=== PATIENT | male | born 1940 | race Caucasian/White ===

== ENCOUNTER 2017-09-12 17:58 | Emergency (ER) | payer MEDICARE ==
[2017-09-12 18:22] LABS: BASOPHILS % (AUTO) 0.5 %; EOSINOPHILS # (AUTO) 0.1 10^3/uL (0.0-0.7); EOSINOPHILS % (AUTO) 1.6 %; HGB - HEMOGLOBIN 14.7 g/dL (14.0-18.0); LYMPHOCYTES # (AUTO) 1.3 10^3/uL (1.5-3.5); LYMPHOCYTES % (AUTO) 15.1 %; MEAN CORPUSCULAR HEMOGLOBIN 33.2 pg (27.0-31.0); MEAN CORPUSCULAR HGB CONC 34.4 g/dL (32.0-36.0); MEAN CORPUSCULAR VOLUME 96.4 fL (80.0-94.0); MEAN PLATELET VOLUME 6.8 fL (7.4-11.4); MONOCYTES % (AUTO) 11.1 %; NEUTROPHILS # (AUTO) 6.2 10^3/uL (1.5-6.6); NEUTROPHILS % (AUTO) 71.7 %; PLT - PLATELET COUNT 161 10^3/uL (130-450); RED BLOOD COUNT 4.44 10^6/uL (4.70-6.10); RED CELL DISTRIBUTION WIDTH 14.1 % (12.0-15.0); WHITE BLOOD COUNT 8.6 x10^3/uL (4.8-10.8)
[2017-09-12 18:35] LABS: ALBUMIN 4.4 g/dL (3.2-5.5); ALBUMIN/GLOBULIN RATIO 1.3 (1.0-2.2); BILIRUBIN,TOTAL 0.7 mg/dL (0.2-1.0); CALCIUM 9.2 mg/dL (8.5-10.3); CREATININE 0.7 mg/dL (0.6-1.2); TOTAL PROTEIN 7.7 g/dL (6.7-8.2)
--- NOTE | 2017-09-12 18:58 | XRAY Report ---
EXAM: CHEST RADIOGRAPHY EXAM DATE: 09/12/2017 06:26 PM. CLINICAL HISTORY: Chest pain since yesterday. COMPARISON: None. TECHNIQUE: 2 views. FINDINGS: Lungs/Pleura: No focal opacities evident. No pleural effusion. No pneumothorax. Normal volumes. Mediastinum: Heart and mediastinal contours are unremarkable. Other: No compression fractures. IMPRESSION: Normal 2-view chest radiography. [facility] Referring Provider Line: [phone] SITE ID: [id number]
--- NOTE | 2017-09-12 19:03 | ED Physician Documentation ---
PD HPI CHEST PAIN - Stated complaint Stated Complaint: CHEST PX/BACK PX/SLURRED SPEECH - Chief complaint Chief Complaint: Cardiac - History obtained from History obtained from: Patient, Family - History of Present Illness Timing - onset: Last night Timing - duration: Days (1) Timing - details: Gradual onset Pain level max: 8 Pain level now: 0 Quality: Aching, Pain Location: Right chest Radiation: Right upper extremity Improved by: Nothing Worsened by: Other (nothing) Associated symptoms: No: Shortness of air, Diaphoresis, Nausea, Vomiting, Feeling faint / dizzy, General Weakness, Palpitations, Cough Recently seen: Not recently seen - Additional information Additional information: 77 year old male with R sided chest and shoulder pain last night that lasted until this am. Noted to have slurred speech this afternoon and brought in for eval. No cardiac history. Does have HTN. Review of Systems Ten Systems: 10 systems reviewed and negative Constitutional: denies: Fever, Chills Ears: denies: Ear pain Nose: denies: Rhinorrhea / runny nose, Congestion Cardiac: denies: Palpitations Respiratory: denies: Dyspnea, Cough, Wheezing GI: denies: Abdominal Pain, Nausea, Vomiting, Diarrhea Skin: denies: Rash Musculoskeletal: denies: Neck pain, Back pain Neurologic: denies: Headache PD PAST MEDICAL HISTORY - Past Medical History Cardiovascular: Hypertension : Benign prostate hypertrophy HEENT: Glaucoma - Past Surgical History Past Surgical History: Yes General: Appendectomy HEENT: Tonsil/Adenoidectomy - Present Medications Home Medications: Ambulatory Orders Medication Instructions Recorded Confirmed Alfuzosin HCl [Alfuzosin HCl ER] 10 mg PO DAILY 04/01/16 04/01/16 Finasteride [Proscar] 5 mg PO DAILY 04/01/16 04/01/16 Lisinopril [Zestril] 20 mg DAILY 04/01/16 04/01/16 Timolol 0.5% Ophth Drops [Timoptic 1 drops RIGHTEYE BID 04/01/16 04/01/16 0.5% Ophth Drops] hydroCHLOROthiazide 25 mg PO DAILY 04/01/16 04/01/16 [Hydrochlorothiazide] - Allergies Allergies/Adverse Reactions: Allergies Allergy/AdvReac Type Severity Reaction Status Date / Time acetaminophen [From Vicodin] AdvReac Hallucinati Verified 09/12/17 18:11 ons hydrocodone bitartrate * AdvReac Hallucinati Verified 09/12/17 18:10 [From Vicodin] ons oxycodone AdvReac Hallucinati Verified 09/12/17 18:10 ons - Social History Does the pt smoke?: No Smoking Status: Never smoker Does the pt drink ETOH?: Yes Does the pt have substance abuse?: No PD ED PE NORMAL - Vitals Vital signs reviewed: Yes - General General: Alert and oriented X 3, No acute distress, Well developed/nourished, Other (intoxicated) - HEENT HEENT: Moist mucous membranes - Neck Neck: Supple, no meningeal sign - Cardiac Cardiac: RRR, No murmur, Strong equal pulses - Respiratory Respiratory: No respiratory distress, Clear bilaterally - Abdomen Abdomen: Soft, Non tender, Non distended - Back Back: No CVA TTP, No spinal TTP - Derm Derm: Warm and dry, No rash - Extremities Extremities: No deformity, No tenderness to palpate, Normal ROM s pain, No edema , No calf tenderness / cord, Other (normal R shoulder exam) - Neuro Neuro: Alert and oriented X 3, cashier 2-12 intact, No motor deficit, No sensory deficit - Psych Psych: Normal mood, Normal affect Results - Vitals Vitals: Vital Signs - 24 hr 09/12/17 09/12/17 09/12/17 18:08 18:38 19:35 Temperature 37.1 C 36.8 C 37.3 C Heart Rate 77 76 79 Respiratory 18 20 22 Rate Blood Pressure 188/110 H 156/89 H 156/126 H O2 Saturation 100 98 97 Oxygen O2 Source Room air - EKG (time done) 1811 Rate: Rate (enter#) (75) Rhythm: NSR [place]ick[place]: Normal Intervals: Normal IN QRS: Normal Ischemia: Normal ST segments - Labs Labs: Laboratory Tests 09/12/17 09/12/17 09/12/17 18:17 18:17 18:17 WBC 8.6 RBC 4.44 L Hgb 14.7 Hct 42.8 MCV 96.4 H MCH 33.2 H MCHC 34.4 RDW 14.1 Plt Count 161 MPV 6.8 L Neut # 6.2 Lymph # 1.3 L [place] # 1.0 Eos # 0.1 Baso # 0.0 Absolute Nucleated RBC 0.00 Nucleated RBC % 0.0 Sodium 143 Potassium 3.5 Chloride 107 Carbon Dioxide 24 Anion Gap 12.0 BUN 21 H Creatinine 0.7 Estimated GFR (MDRD) 110 Glucose 111 H Calcium 9.2 Total Bilirubin 0.7 AST 66 H ALT 85 H Alkaline Phosphatase 41 L Troponin I < 0.04 Total Protein 7.7 Albumin 4.4 Globulin 3.3 Albumin/Globulin Ratio 1.3 Lipase 50 Ethyl Alcohol 09/12/17 18:17 WBC RBC Hgb Hct MCV MCH MCHC RDW Plt Count MPV Neut # Lymph # [place] # Eos # Baso # Absolute Nucleated RBC Nucleated RBC % Sodium Potassium Chloride Carbon Dioxide Anion Gap BUN Creatinine Estimated GFR (MDRD) Glucose Calcium Total Bilirubin AST ALT Alkaline Phosphatase Troponin I Total Protein Albumin Globulin Albumin/Globulin Ratio Lipase Ethyl Alcohol 256.9 - Rads (name of study) cxr Radiology: Prelim report reviewed, EMP read contemporaneously, See rad report ( Normal 2-view chest radiography. ) PD MEDICAL DECISION MAKING - ED course Complexity details: reviewed results, re-evaluated patient, considered differential (No ST elevation AL, no aortic dissection, no PE, no tension pneumothorax, no aortic aneurysm), d/w patient, d/w family ED course: Patient is a 77-year-old gentleman who presents to the emergency department with right shoulder and right upper chest wall pain last night. This is since resolved. Normal examination here. The pain was consistent throughout the night. This was greater than 8 hours ago, negative troponin. Normal EKG. Normal chest x-ray. He is heavily intoxicated and states he "does not drink that much". He also states he only had one drink today. I discussed at length the need for him to quit drinking as this may be contributing to his frequent falls. He also states that he feels unsteady on ladders and I recommended that he does not climb ladders while he is intoxicated. Patient counseled regarding signs and symptoms for which I believe and urgent re-evaluation would be necessary. Patient with good understanding of and agreement to plan and is comfortable going home at this time This document was made in part using voice recognition software. While efforts are made to proofread this document, sound alike and grammatical errors may occur. Departure - Departure Disposition: 01 Home, Self Care Clinical Impression: Shoulder pain Qualifiers: Chronicity: acute Laterality: right Qualified Code(s): M25.511 - Pain in right shoulder Alcohol intoxication Qualifiers: Complication of substance-induced condition: uncomplicated Qualified Code(s): F10.920 - Alcohol use, unspecified with intoxication, uncomplicated Condition: Good Instructions: ED Chest Pain Atypical Unkn Cause, ED Alcohol Intoxication Follow-Up: your,doctor in 3 days for recheck [Other] Comments: You alcohol level was over 3 times the legal limit today. Do not drive. Your son in law will drive you home. Follow up with your doctor to discuss ways to help you stop drinking. Discharge Date/Time: 09/12/17 19:41
[2017-09-12 19:36] VITALS: BP 156/126
== END 2017-09-12 19:41 | disposition home or self-care (01) ==
LOC: ED 17:58
DX: M25.511 Pain in right shoulder (principal); F10.920 Alcohol use, unspecified with intoxication, uncomplicated; I45.81 Long QT syndrome; I10 Essential (primary) hypertension
CPT/HCPCS: 36415; 71046; 80053; 83690; 84484; 85025; 93005; 99283; 99285; G0480; 80320

== ENCOUNTER 2018-05-19 09:55 | Emergency (ER) | payer MEDICARE ==
[2018-05-19] MEDS ORDERED: SODIUM CHLORIDE 0.9% 1,000 ML IV ONE (10:21)
[2018-05-19] MEDS ORDERED: LORazepam 2 MG/ML VIAL IVP STA (10:21)
[2018-05-19] MEDS ORDERED: THIAMINE INJ 100 MG in SODIUM CHLORIDE 0.9% 50 ML IV STA (10:21)
--- NOTE | 2018-05-19 10:23 | ED Physician Documentation ---
History of Present Illness - Stated complaint Stated Complaint: HALLUCINATION - Chief complaint Chief Complaint: General - History obtained from History obtained from: Patient - History of Present Illness Timing: Other (This is a 77-year-old gentleman who has a chief complaint of mostly visual hallucinations. He has been intermittently taking gabapentin for the last couple of months and he feels like this may be causing it but he also quit drinking alcohol about 5 days ago. He says especially at night he is seeing people on his property cutting down things and he has been chasing people around. He does feel shaky. No vomiting. He is hit his head several times because of disequilibrium including a fall downstairs a few weeks ago.) Review of Systems Ten Systems: 10 systems reviewed and negative Constitutional: denies: Fever, Chills Nose: denies: Rhinorrhea / runny nose, Congestion Cardiac: denies: Chest pain / pressure, Palpitations Respiratory: denies: Dyspnea, Cough PD PAST MEDICAL HISTORY - Past Medical History Past Medical History: Yes Cardiovascular: Hypertension : Benign prostate hypertrophy HEENT: Glaucoma - Past Surgical History Past Surgical History: Yes General: Appendectomy HEENT: Tonsil/Adenoidectomy - Present Medications Home Medications: Ambulatory Orders Medication Instructions Recorded Confirmed Alfuzosin HCl [Alfuzosin HCl ER] 10 mg PO DAILY 04/01/16 04/01/16 Finasteride [Proscar] 5 mg PO DAILY 04/01/16 04/01/16 Lisinopril [Zestril] 20 mg DAILY 04/01/16 04/01/16 Timolol 0.5% Ophth Drops [Timoptic 1 drops RIGHTEYE BID 04/01/16 04/01/16 0.5% Ophth Drops] hydroCHLOROthiazide 25 mg PO DAILY 04/01/16 04/01/16 [Hydrochlorothiazide] Lorazepam [Ativan] 1 mg PO TID PRN #15 tablet 05/19/18 - Allergies Allergies/Adverse Reactions: Allergies Allergy/AdvReac Type Severity Reaction Status Date / Time acetaminophen [From Vicodin] AdvReac Hallucinati Verified 05/19/18 10:06 ons hydrocodone bitartrate * AdvReac Hallucinati Verified 05/19/18 10:06 [From Vicodin] ons oxycodone AdvReac Hallucinati Verified 05/19/18 10:06 ons - Social History Does the pt smoke?: No Smoking Status: Never smoker Does the pt drink ETOH?: Yes Does the pt have substance abuse?: No - POLST Patient has POLST: Yes PD ED PE NORMAL - Vitals Vital signs reviewed: Yes - General General: Alert and oriented X 3, Other (Tremulous) - HEENT HEENT: PERRL, EOMI - Neck Neck: Supple, no meningeal sign, No bony TTP - Cardiac Cardiac: RRR, No murmur - Respiratory Respiratory: No respiratory distress, Clear bilaterally - Abdomen Abdomen: Normal bowel sounds, Soft, Non tender - Back Back: No CVA TTP, No spinal TTP - Derm Derm: Normal color, Warm and dry - Extremities Extremities: No edema, No calf tenderness / cord - Neuro Neuro: Alert and oriented X 3, Normal speech Eye Opening: Spontaneous Motor: Obeys Commands Verbal: Oriented GCS Score: 15 - Psych Psych: Normal mood, Normal affect Results - Vitals Vitals: Vital Signs - 24 hr 05/19/18 05/19/18 10:01 12:27 Temperature 36.4 C L 37.6 C H Heart Rate 90 84 Respiratory 20 18 Rate Blood Pressure 163/108 H 147/108 H O2 Saturation 100 98 Oxygen O2 Source Room air - Labs Labs: Laboratory Tests 05/19/18 05/19/18 10:31 10:31 WBC 10.5 RBC 4.94 Hgb 16.8 Hct 47.3 MCV 95.8 H MCH 33.9 H MCHC 35.4 RDW 14.0 Plt Count 127 L MPV 8.2 Neut # (Auto) 7.9 H Lymph # (Auto) 1.1 L [place] # (Auto) 1.4 H Eos # (Auto) 0.1 Baso # (Auto) 0.0 Absolute Nucleated RBC 0.01 Nucleated RBC % 0.1 Sodium 134 L Potassium 3.9 Chloride 96 L Carbon Dioxide 23 Anion Gap 15.0 H BUN 39 H Creatinine 1.3 H Estimated GFR (MDRD) 54 L Glucose 107 H Calcium 9.4 Total Bilirubin 1.9 H AST 71 H ALT 71 H Alkaline Phosphatase 52 Total Protein 8.0 Albumin 4.9 Globulin 3.1 Albumin/Globulin Ratio 1.6 Lipase 47 Ethyl Alcohol < 5.0 - Rads (name of study) Head CT Radiology: EMP read contemporaneously (NAD) PD MEDICAL DECISION MAKING - ED course ED course: 87-year-old gentleman with hallucinations associated with alcohol withdrawal. He appeared less shaky after single dose of Ativan and he was not hallucinating here. Social work saw him. He declined inpatient detox. Departure - Departure Disposition: 01 Home, Self Care Clinical Impression: Alcohol withdrawal Qualifiers: Complication of substance-induced condition: with perceptual disturbance Qualified Code(s): F10.232 - Alcohol dependence with withdrawal with perceptual disturbance Condition: Good Record reviewed to determine appropriate education?: Yes Instructions: ED Withdrawal Alcohol Prescriptions: Lorazepam [Ativan] 1 mg PO TID PRN #15 tablet PRN Reason: Anxiety Comments: Call your doctor to arrange a follow-up appointment, make the next available appointment. In the interim, return anytime if worse or if new symptoms develop. Your blood pressure was elevated today on check into the emergency department. This does not mean that you have hypertension, it is a common phenomenon to come to the emergency department and have elevated blood pressure. I recommend that you see your primary care physician within the week to have it rechecked when you are feeling better.
[2018-05-19 10:46] LABS: BASOPHILS % (AUTO) 0.4 %; EOSINOPHILS # (AUTO) 0.1 10^3/uL (0.0-0.7); EOSINOPHILS % (AUTO) 0.6 %; HGB - HEMOGLOBIN 16.8 g/dL (14.0-18.0); LYMPHOCYTES # (AUTO) 1.1 10^3/uL (1.5-3.5); LYMPHOCYTES % (AUTO) 10.1 %; MEAN CORPUSCULAR HEMOGLOBIN 33.9 pg (27.0-31.0); MEAN CORPUSCULAR HGB CONC 35.4 g/dL (32.0-36.0); MEAN CORPUSCULAR VOLUME 95.8 fL (80.0-94.0); MEAN PLATELET VOLUME 8.2 fL (7.4-11.4); MONOCYTES # (AUTO) 1.4 10^3/uL (0.0-1.0); MONOCYTES % (AUTO) 13.4 %; NEUTROPHILS # (AUTO) 7.9 10^3/uL (1.5-6.6); NEUTROPHILS % (AUTO) 75.5 %; PLT - PLATELET COUNT 127 10^3/uL (130-450); RED BLOOD COUNT 4.94 10^6/uL (4.70-6.10); WHITE BLOOD COUNT 10.5 x10^3/uL (4.8-10.8)
[2018-05-19 11:00] LABS: ALBUMIN 4.9 g/dL (3.2-5.5); ALBUMIN/GLOBULIN RATIO 1.6 (1.0-2.2); ALKALINE PHOSPHATASE 52 IU/L (42-121); ALT ALANINE AMINOTRANSFERASE 71 IU/L (10-60); AST ASPARTATE AMINOTRANSFERASE 71 IU/L (10-42); BILIRUBIN,TOTAL 1.9 mg/dL (0.2-1.0); BUN - BLOOD UREA NITROGEN 39 mg/dL (6-20); CALCIUM 9.4 mg/dL (8.5-10.3); CARBON DIOXIDE - CO2 23 mmol/L (21-32); CHLORIDE 96 mmol/L (101-111); CREATININE 1.3 mg/dL (0.6-1.2); GFR - MDRD 54 (>89); GLUCOSE 107 mg/dL (70-100); LIPASE 47 U/L (22-51); SODIUM 134 mmol/L (135-145)
--- NOTE | 2018-05-19 11:15 | CT Report ---
Reason: head inj Procedure Date: 05/19/2018 Accession Number: [id number] / [id number] Procedure: CT - Head W/O CPT Code: FULL RESULT: EXAM: CT HEAD EXAM DATE: 05/19/2018 11:03 AM. CLINICAL HISTORY: Head injury. COMPARISON: None. TECHNIQUE: Multiaxial CT images were obtained from the foramen magnum to the vertex. Reformats: Sagittal and coronal. IV contrast: None. In accordance with CT protocol optimization, one or more of the following dose reduction techniques were utilized for this exam: automated exposure control, adjustment of mA and/or KV based on patient size, or use of iterative reconstructive technique. FINDINGS: Parenchyma: No intraparenchymal hemorrhage. No evidence of mass, midline shift. Rodríguez-white differentiation is distinct. Extraaxial Spaces: Normal for age. No subdural or epidural collections identified. Ventricles: Normal in size and position. Sinuses and Orbits: Imaged paranasal sinuses, orbits, and mastoids show no significant abnormality. Bones: No evidence of fracture or calvarial defect. Other: There is an extracranial superficial left posterior scalp hematoma. IMPRESSION: No acute intracranial abnormality. [facility]
[2018-05-19 12:28] VITALS: BP 147/108
== END 2018-05-19 13:49 | disposition home or self-care (01) ==
LOC: ED 09:55
DX: F10.232 Alcohol dependence with withdrawal with perceptual disturbance (principal); I10 Essential (primary) hypertension
CPT/HCPCS: 36415; 70450; 80053; 83690; 85025; 96361; 96365; 96375; 99283; J2060; 80320

== ENCOUNTER 2018-10-09 05:26 | Outpatient (CLI) | payer MEDICARE | END 2018-10-09 05:27 | disposition critical access hospital (66) | LOC: EMS 05:26 | PROVIDERS: ATTEND Surgery | DX: R44.1 Visual hallucinations (principal); R42 Dizziness and giddiness; R45.1 Restlessness and agitation ==

== ENCOUNTER 2018-10-09 05:59 | Emergency (ER) | payer MEDICARE ==
[2018-10-09] MEDS ORDERED: LORazepam 2 MG/ML VIAL IVP STA ×2 (06:11→08:33)
[2018-10-09] MEDS ORDERED: FOLIC ACID INJ 1 MG, THIAMINE INJ 100 MG, MAGNESIUM SULFATE 2 GM, MULTIVITAMIN 10 ML in... IV STA ×5 (06:12)
[2018-10-09] MEDS ORDERED: THIAMINE 100 MG/1 ML 2 ML MDV ONE (06:25)
[2018-10-09] MEDS ORDERED: MULTIVITAMIN 10 ML, THIAMINE INJ 100 MG, FOLIC ACID INJ 1 MG in SODIUM CHLORIDE 0.9% 1,... IV STA (06:31)
[2018-10-09] MEDS ORDERED: MAGNESIUM SULFATE 1 GM/2 ML VIAL ONE (06:37)
[2018-10-09 06:46] LABS: BASOPHILS % (AUTO) 0.3 %; EOSINOPHILS % (AUTO) 0.4 %; HGB - HEMOGLOBIN 14.8 g/dL (14.0-18.0); LYMPHOCYTES # (AUTO) 0.5 10^3/uL (1.5-3.5); LYMPHOCYTES % (AUTO) 6.5 %; MEAN CORPUSCULAR HEMOGLOBIN 33.8 pg (27.0-31.0); MEAN CORPUSCULAR HGB CONC 35.8 g/dL (32.0-36.0); MEAN CORPUSCULAR VOLUME 94.2 fL (80.0-94.0); MEAN PLATELET VOLUME 7.7 fL (7.4-11.4); MONOCYTES # (AUTO) 1.1 10^3/uL (0.0-1.0); MONOCYTES % (AUTO) 13.3 %; NEUTROPHILS # (AUTO) 6.5 10^3/uL (1.5-6.6); NEUTROPHILS % (AUTO) 79.5 %; PLT - PLATELET COUNT 107 10^3/uL (130-450); WHITE BLOOD COUNT 8.2 x10^3/uL (4.8-10.8)
[2018-10-09 06:53] LABS: ALBUMIN 4.2 g/dL (3.2-5.5); ALBUMIN/GLOBULIN RATIO 1.4 (1.0-2.2); ALKALINE PHOSPHATASE 60 IU/L (42-121); ALT ALANINE AMINOTRANSFERASE 50 IU/L (10-60); AST ASPARTATE AMINOTRANSFERASE 41 IU/L (10-42); BILIRUBIN,TOTAL 1.6 mg/dL (0.2-1.0); BUN - BLOOD UREA NITROGEN 19 mg/dL (6-20); CALCIUM 8.4 mg/dL (8.5-10.3); CARBON DIOXIDE - CO2 19 mmol/L (21-32); CHLORIDE 95 mmol/L (101-111); CREATININE 1.1 mg/dL (0.6-1.2); GFR - MDRD 65 (>89); GLUCOSE 162 mg/dL (70-100); LIPASE 42 U/L (22-51); MAGNESIUM 1.3 mg/dL (1.7-2.8); PHOSPHORUS 2.3 mg/dL (2.5-4.6); SODIUM 130 mmol/L (135-145); TOTAL PROTEIN 7.3 g/dL (6.7-8.2)
[2018-10-09 07:12] LABS: INR 1.1 (0.8-1.2); PT - PROTHROMBIN TIME 12.7 secs (9.9-12.6)
[2018-10-09 07:19] LABS: PARTIAL THROMBOPLASTIN TIME 27.6 secs (24.9-33.3)
[2018-10-09] MEDS ORDERED: POTASSIUM CHLORIDE 20 MEQ TABLET PO STA (08:08)
--- NOTE | 2018-10-09 08:23 | ED Physician Documentation ---
PD HPI ALTERED MENTAL STATUS - Stated complaint Stated Complaint: ALOC, TREMORS - Chief complaint Chief Complaint: Neuro - History obtained from History obtained from: Patient, Family, EMS - History of Present Illness Timing - onset: Yesterday Timing - duration: Days (2) Timing - details: Gradual onset, Still present Quality / character: Less responsive, Confused, Agitated, Hallucinating Associated symptoms: General weakness. No: Fever, Headache, Stiff neck, Dyspnea, Cough, NVD, Urinary sx, Focal weakness, Seizure activity Contributing factors: Other (alcohol withdrawal) Basline status: Alert and oriented X 3, Ambulatory, Independent Similar symptoms before: Diagnosis (alcohol withdrawal) Recently seen: Not recently seen - Additional information Additional information: 78-year-old alcoholic male has stopped drinking about 1 week ago and this morning he was having issues with hallucinations feeling that there were children running around outside of his house. He was quite shaky when medics went to pick him up and he is weak as well. He states he has had similar symptoms previously with alcohol withdrawal which are usually delayed. He reports a prior 10-year history of sobriety and states that he drinks about 1/5/day. He has stopped drinking after getting a letter from his granddaughter. He has had ativan prior to my talking to the patient and he feels much improved still a little shaky. He indicates he has had this happen to him previously with withdrawal . Review of Systems Constitutional: denies: Fever Eyes: denies: Decreased vision Ears: denies: Ear pain Nose: denies: Rhinorrhea / runny nose, Congestion Throat: denies: Sore throat Cardiac: denies: Chest pain / pressure, Palpitations Respiratory: denies: Dyspnea, Cough GI: reports: Nausea, Diarrhea. denies: Abdominal Pain, Vomiting : denies: Dysuria, Frequency Skin: denies: Rash Musculoskeletal: denies: Neck pain, Back pain, Extremity pain Neurologic: reports: Generalized weakness, Confused, Altered mental status. denies: Focal weakness, Numbness Psychiatric: reports: Hallucinations. denies: Depressed, Suicidal, Homicidal PD PAST MEDICAL HISTORY - Past Medical History Past Medical History: Yes Cardiovascular: Hypertension : Benign prostate hypertrophy HEENT: Glaucoma - Past Surgical History Past Surgical History: Yes General: Appendectomy HEENT: Tonsil/Adenoidectomy - Present Medications Home Medications: Ambulatory Orders Medication Instructions Recorded Confirmed Alfuzosin HCl [Alfuzosin HCl ER] 10 mg PO DAILY 04/01/16 04/01/16 Finasteride [Proscar] 5 mg PO DAILY 04/01/16 04/01/16 Lisinopril [Zestril] 20 mg DAILY 04/01/16 04/01/16 Timolol 0.5% Ophth Drops [Timoptic 1 drops RIGHTEYE BID 04/01/16 04/01/16 0.5% Ophth Drops] hydroCHLOROthiazide 25 mg PO DAILY 04/01/16 04/01/16 [Hydrochlorothiazide] Lorazepam [Ativan] 1 mg PO TID PRN #15 tablet 05/19/18 Lorazepam [Ativan] 1 - 2 mg PO Q6HR PRN #30 tablet 10/09/18 - Allergies Allergies/Adverse Reactions: Allergies Allergy/AdvReac Type Severity Reaction Status Date / Time acetaminophen [From Vicodin] AdvReac Hallucinati Verified 10/09/18 06:06 ons hydrocodone bitartrate * AdvReac Hallucinati Verified 10/09/18 06:06 [From Vicodin] ons oxycodone AdvReac Hallucinati Verified 10/09/18 06:06 ons - Social History Does the pt smoke?: No Smoking Status: Never smoker Does the pt drink ETOH?: Yes Does the pt have substance abuse?: No - POLST Patient has POLST: Yes PD ED PE NORMAL - Vitals Vital signs reviewed: Yes (hypertensive ) - General General: Alert and oriented X 3, No acute distress, Well developed/nourished, Other (shaking but without evidence of acute hallucination now. ) - HEENT HEENT: Atraumatic, PERRL, EOMI, Ears normal, Pharynx benign, Dentition benign, Other (dry mucous membranes ) - Neck Neck: Supple, no meningeal sign, No bony TTP - Cardiac Cardiac: RRR, No murmur - Respiratory Respiratory: No respiratory distress, Clear bilaterally - Abdomen Abdomen: Soft, Non tender - Back Back: No CVA TTP, No spinal TTP - Derm Derm: Normal color, Warm and dry, No rash - Extremities Extremities: No deformity, No edema - Neuro Neuro: Alert and oriented X 3, station usher 2-12 intact, No motor deficit, No sensory deficit, Normal speech Eye Opening: Spontaneous Motor: Obeys Commands Verbal: Oriented GCS Score: 15 - Psych Psych: Normal mood, Normal affect Results - Vitals Vitals: Vital Signs - 24 hr 10/09/18 10/09/18 06:00 07:00 Temperature 36.8 C Heart Rate 91 79 Respiratory 18 20 Rate Blood Pressure 121/93 H 149/110 H O2 Saturation 100 96 Oxygen O2 Source Room air - Labs Labs: Laboratory Tests 10/09/18 10/09/18 10/09/18 06:10 06:10 06:10 WBC 8.2 RBC 4.40 L Hgb 14.8 Hct 41.4 L MCV 94.2 H MCH 33.8 H MCHC 35.8 RDW 14.0 Plt Count 107 L MPV 7.7 Neut # (Auto) 6.5 Lymph # (Auto) 0.5 L [place] # (Auto) 1.1 H Eos # (Auto) 0.0 Baso # (Auto) 0.0 Absolute Nucleated RBC 0.01 Nucleated RBC % 0.1 PT 12.7 H INR 1.1 APTT 27.6 Sodium 130 L Potassium 3.3 L Chloride 95 L Carbon Dioxide 19 L Anion Gap 16.0 H BUN 19 Creatinine 1.1 Estimated GFR (MDRD) 65 L Glucose 162 H Calcium 8.4 L Phosphorus 2.3 L Magnesium 1.3 L Total Bilirubin 1.6 H AST 41 ALT 50 Alkaline Phosphatase 60 Total Protein 7.3 Albumin 4.2 Globulin 3.1 Albumin/Globulin Ratio 1.4 Lipase 42 Ethyl Alcohol < 5.0 PD MEDICAL DECISION MAKING - ED course Complexity details: considered differential, d/w patient ED course: 78-year-old male with delayed effects of alcohol withdrawal he has improvement with use of Ativan he is administered a banana bag with thiamine and magnesium as well as potassium chloride. He is administered further Ativan and we will discharge him with a prescription for Ativan. Departure - Departure Disposition: 01 Home, Self Care Clinical Impression: Alcohol withdrawal Qualifiers: Complication of substance-induced condition: with delirium Qualified Code(s): F10.231 - Alcohol dependence with withdrawal delirium Condition: Stable Instructions: ED Withdrawal Alcohol Follow-Up: Mark Carrera MD [Physician No Access] - Prescriptions: Lorazepam [Ativan] 1 - 2 mg PO Q6HR PRN #30 tablet PRN Reason: withdrawal symptoms
[2018-10-09 09:11] VITALS: BP 90/75
== END 2018-10-09 09:25 | disposition home or self-care (01) ==
LOC: EDUNIT# → ED 05:59
DX: F10.231 Alcohol dependence with withdrawal delirium (principal); I10 Essential (primary) hypertension
CPT/HCPCS: 36415; 80053; 80320; 83690; 83735; 84100; 85025; 85610; 85730; 99283

== ENCOUNTER 2018-10-09 15:45 | Emergency (ER) | payer MEDICARE ==
--- NOTE | 2018-10-09 16:41 | ED Physician Documentation ---
History of Present Illness - Stated complaint Stated Complaint: respiratory - Chief complaint Chief Complaint: General - History obtained from History obtained from: Patient, Family - History of Present Illness Timing: Today Pain level max: 0 Pain level now: 0 - Additonal information Additional information: 78-year-old male with a long history of alcoholism. He presents to the emergency department this morning after a week of alcohol withdrawal. He was given Ativan for home. Family states that at home while he was sleeping he would stop breathing for a few seconds at a time and brought him for evaluation. Patient does have a history of GLORIA but does not use a CPAP. Review of Systems Ten Systems: 10 systems reviewed and negative Constitutional: denies: Fever, Chills Ears: denies: Ear pain Nose: denies: Rhinorrhea / runny nose, Congestion Respiratory: denies: Dyspnea, Cough GI: denies: Nausea, Vomiting, Diarrhea Skin: denies: Rash Musculoskeletal: denies: Neck pain, Back pain Neurologic: denies: Focal weakness, Numbness Psychiatric: reports: Hallucinations (Has had visual hallucinations.). denies: Depressed, Suicidal, Homicidal PD PAST MEDICAL HISTORY - Past Medical History Past Medical History: Yes Cardiovascular: Hypertension : Benign prostate hypertrophy HEENT: Glaucoma - Past Surgical History Past Surgical History: Yes General: Appendectomy HEENT: Tonsil/Adenoidectomy - Present Medications Home Medications: Ambulatory Orders Medication Instructions Recorded Confirmed Alfuzosin HCl [Alfuzosin HCl ER] 10 mg PO DAILY 04/01/16 04/01/16 Finasteride [Proscar] 5 mg PO DAILY 04/01/16 04/01/16 Lisinopril [Zestril] 20 mg DAILY 04/01/16 04/01/16 Timolol 0.5% Ophth Drops [Timoptic 1 drops RIGHTEYE BID 04/01/16 04/01/16 0.5% Ophth Drops] hydroCHLOROthiazide 25 mg PO DAILY 04/01/16 04/01/16 [Hydrochlorothiazide] Lorazepam [Ativan] 1 mg PO TID PRN #15 tablet 05/19/18 Gabapentin 600 mg PO TID #90 tablet 10/09/18 Lorazepam [Ativan] 1 - 2 mg PO Q6HR PRN #30 tablet 10/09/18 Thiamine [Vitamin B-1] 100 mg PO DAILY #30 tablet 10/09/18 - Allergies Allergies/Adverse Reactions: Allergies Allergy/AdvReac Type Severity Reaction Status Date / Time acetaminophen [From Vicodin] AdvReac Hallucinati Verified 10/09/18 15:52 ons hydrocodone bitartrate * AdvReac Hallucinati Verified 10/09/18 15:52 [From Vicodin] ons oxycodone AdvReac Hallucinati Verified 10/09/18 15:52 ons - Social History Does the pt smoke?: No Smoking Status: Never smoker Does the pt drink ETOH?: Yes Does the pt have substance abuse?: No - Immunizations Immunizations are current?: Yes - POLST Patient has POLST: Yes PD ED PE NORMAL - Vitals Vital signs reviewed: Yes - General General: Alert and oriented X 3, No acute distress - HEENT HEENT: PERRL - Neck Neck: Supple, no meningeal sign - Cardiac Cardiac: RRR, No murmur - Respiratory Respiratory: Clear bilaterally - Abdomen Abdomen: Normal bowel sounds, Soft, Non tender, Non distended - Derm Derm: Warm and dry - Extremities Extremities: No deformity - Neuro Neuro: Alert and oriented X 3 - Psych Psych: Normal mood, Normal affect Results - Vitals Vitals: Vital Signs - 24 hr 10/09/18 10/09/18 15:48 17:20 Temperature 36.7 C Heart Rate 92 80 Respiratory 18 16 Rate Blood Pressure 138/39 H 132/77 H O2 Saturation 97 98 Oxygen O2 Source Room air PD MEDICAL DECISION MAKING - ED course Complexity details: reviewed results, re-evaluated patient, considered differential, d/w patient, d/w family ED course: Symptoms that the family are concerned about appear consistent with obstructive sleep apnea. He should have a sleep test performed. We will also place him on gabapentin as well as thiamine for home. We will have him follow-up with his doctor for further evaluation and care. Patient counseled regarding signs and symptoms for which I believe and urgent re-evaluation would be necessary. Patient with good understanding of and agreement to plan and is comfortable going home at this time This document was made in part using voice recognition software. While efforts are made to proofread this document, sound alike and grammatical errors may occur. Resources given for long-term alcohol rehab as well as crisis detox facilities for short-term. Departure - Departure Disposition: 01 Home, Self Care Clinical Impression: Hallucinations due to alcohol Condition: Good Instructions: ED Withdrawal Alcohol, ED Psychosis Follow-Up: Gerson Sanon MD [Primary Care Provider] - Within 3 Days Prescriptions: Gabapentin 600 mg PO TID #90 tablet Thiamine [Vitamin B-1] 100 mg PO DAILY #30 tablet Comments: Return if you worsen. Follow-up on Thursday with your doctor for further evaluation and care. Maximo would benefit from long-term rehab. The gabapentin will help decrease cravings for alcohol. The thiamine may help his hallucinations over time. He would also benefit from a sleep study, but this is less important. He would likely benefit from a CPAP machine at home to use at night. His doctor can refer him for the sleep study. Discharge Date/Time: 10/09/18 17:21
[2018-10-09] MEDS ORDERED: GABAPENTIN 100 MG CAPSULE PO STA (16:43)
[2018-10-09 17:21] VITALS: BP 132/77
== END 2018-10-09 17:21 | disposition home or self-care (01) ==
LOC: ED 15:45
DX: F10.251 Alcohol dependence with alcohol-induced psychotic disorder with hallucinations (principal); F10.231 Alcohol dependence with withdrawal delirium; G47.33 Obstructive sleep apnea (adult) (pediatric); I10 Essential (primary) hypertension
CPT/HCPCS: 36415; 80053; 83690; 83735; 84100; 85025; 85610; 85730; 96365; 96366; 96375; 96376; 99283; 99284; A9270; J2060; J3411; 80320

== ENCOUNTER 2018-10-10 13:17 | Outpatient (CLI) | payer MEDICARE | END 2018-10-10 13:18 | disposition short-term general hospital (02) | LOC: EMS 13:17 | PROVIDERS: ATTEND Surgery | DX: R44.3 Hallucinations, unspecified (principal); R29.6 Repeated falls; R42 Dizziness and giddiness; Z91.81 History of falling; Z72.89 Other problems related to lifestyle ==

== ENCOUNTER 2023-09-15 06:31 | Day surgery (SDC) | payer MEDICARE ==
[2023-09-15] MEDS ORDERED: ceFAZolin 2 GM VIAL ONE (06:36)
[2023-09-15] MEDS: LACTATED RINGERS 1,000 ML IV ONE ×2 (06:38→09:10)
--- NOTE | 2023-09-15 06:46 | ANESTHESIA ---
Pre-Anesthesia VS, & Labs - Diagnosis umbilical hernia - Procedure umbilical hernia repair with mesh Height: 5 ft 7 in - NPO >8 hours - Lab Results Lab results reviewed: Yes Home Medications and Allergies Home Medications: Ambulatory Orders Brimonidine 0.2% Ophth Drops [Alphagan P 0.2% Ophth Drops] 1 drops OPTH TID 09/14/23 Losartan [Cozaar] 50 mg PO DAILY 09/14/23 Tamsulosin [Flomax] 0.4 mg PO DAILY 09/14/23 Finasteride [Proscar] 5 mg PO DAILY 04/01/16 Timolol 0.5% Ophth Drops [Timoptic 0.5% Ophth Drops] 1 drops RIGHTEYE BID 04/01/16 Brimonidine 0.2% Ophth Drops [Alphagan P 0.2% Ophth Drops] 1 drops OPTH TID 09/14/23 Losartan [Cozaar] 50 mg PO DAILY 09/14/23 Tamsulosin [Flomax] 0.4 mg PO DAILY 09/14/23 Allergies/Adverse Reactions: Allergies Allergy/AdvReac Type Severity Reaction Status Date / Time acetaminophen [From Vicodin] AdvReac Hallucinati Verified 09/15/23 07:18 ons hydrocodone bitartrate * AdvReac Hallucinati Verified 09/15/23 07:18 [From Vicodin] ons oxycodone AdvReac Hallucinati Verified 09/15/23 07:18 ons Anes History & Medical History - Anesthetic History Anesthesia Complications: reports: No previous complications Family history of Anesthesia Complications: Denies Family history of Malignant Hyperthermia: Denies - Medical History Cardiovascular: reports: Hypertension Urinary: reports: Benign prostate hypertrophy Smoking Status: Never smoker - Surgical History General: reports: Appendectomy Eyes Ears Nose Throat (EENT): reports: Tonsil/Adenoidectomy Exam General: Alert, Oriented x3, Cooperative, No acute distress Dental: Dentures full Upper, Dentures full Lower Mouth Openin Fingerbreadth Neck Mobility: Normal Mallampati classification: II Thyromental Distance: less than 4 cm Respiratory: Lungs clear, Normal breath sounds Cardiovascular: Other (SB 1 degree AV block, new EKG this AM, discussed with ER MD x2 and Internal medicine MD. minimal concerns with pt being asymptomatic. Will proceed with surgery as planned) Mental/Cognitive Status: Alert/Oriented X3, Normal for patient Cognitive Status: Within normal limits Plan Anesthesia Type: General Consent for Procedure(s) Verified and Reviewed: Yes Code Status: Attempt Resuscitation ASA classification: 2-Mild systemic disease Is this case an emergency?: No
[2023-09-15] MEDS ORDERED: ONDANSETRON 4 MG/2 ML VIAL IVP PRN ×2 (06:51→09:41)
[2023-09-15] MEDS ORDERED: METOCLOPRAMIDE 10 MG/2 ML VIAL IVP PRN (06:51)
[2023-09-15] MEDS ORDERED: NALOXONE 0.4 MG/ML VIAL IVP PRN (06:51)
[2023-09-15] MEDS ORDERED: ATROPINE ABBOJECT 1 MG/10 ML SYRINGE IVP PRN (06:51)
[2023-09-15] MEDS ORDERED: ePHEDrine 50 MG/ML VIAL IVP PRN (06:51)
[2023-09-15] MEDS ORDERED: BUPIVACAINE 0.5%-EPI 1:200000 PF 30 ML VIAL ONE (06:52)
[2023-09-15] MEDS ORDERED: LIDOCAINE-PF 2% 10 ML AMP SUBQ ONE (07:00)
[2023-09-15] MEDS ORDERED: LACTATED RINGERS 1,000 ML IV SCH (07:00)
[2023-09-15] MEDS ORDERED: PROPOFOL 200 MG/20 ML VIAL IVP ONE (07:00)
[2023-09-15] MEDS ORDERED: fentaNYL 100 MCG/2 ML VIAL ONE ×3 (07:01→09:34)
[2023-09-15] MEDS ORDERED: MIDAZOLAM 2 MG/2 ML VIAL ONE (07:01)
[2023-09-15] MEDS ORDERED: GLYCOPYRROLATE 1 MG/5 ML VIAL ONE (07:36)
[2023-09-15] MEDS ORDERED: SODIUM CHLORIDE 0.9% 10 ML VIAL IVP ONE (07:54)
[2023-09-15] MEDS ORDERED: ePHEDrine 50 MG/ML VIAL IVP ONE (07:54)
[2023-09-15] MEDS: BUPIVACAINE 0.5%-EPI 1:200000 PF 30 ML VIAL SUBQ ONE (08:02)
[2023-09-15] MEDS ORDERED: DEXAMETHASONE 4 MG/ML VIAL ONE (08:09)
[2023-09-15] MEDS ORDERED: ROCURONIUM 50 MG/5 ML VIAL ONE (08:39)
--- NOTE | 2023-09-15 09:27 | OPERATIVE REPORT ---
Operative Report - General Procedure Date: 09/15/23 Planned Procedure: Large umbilical herniorrhaphy Pre-Op Diagnosis: Symptomatic umbilical hernia Procedure Performed: Large umbilical herniorrhaphy (fascial defect 5 x 4 cm) Post Op Diagnosis: Same - Procedure Note Primary Surgeon: Maximo Pablo MD Anesthesia Provider: Fernando Ibarra CRNA Anesthesia Technique: General LMA, Local (30 mL of half percent Marcaine with epinephrine) IV Fluids (mL): 1,000 Estimated Blood Loss (mL): 20 Drain/Tube Type: Other (None) Complications: None - Other Other Information/Narrative: After verbal and written informed consent was obtained detailing the operation, the alternatives the operation including no operation, risks of infection, bleeding requiring transfusion with its risks, nerve injury, and and after I met with the patient confirming the surgery and the site of surgery, the patient was brought to the operative suite and placed supine on the operating table. Great care was taken to avoid pressure points to prevent pressure necrosis or nerve injury. Monitoring devices were applied along with TEDs and pneumatic compression stockings (to prevent DVT). The patient received pre operative antibiotics for surgical prophylaxis. Fernando Ibarra CRNA sedated and anesthetized the patient for the entire procedure. The patient was prepped and draped in the usual sterile manner. A "time in" then confirmed that the patient was identified with 3 identifiers (name, date, and medical record number), the history and physical was updated and in the chart, the signed consent con firming the procedure was in the chart, the patient was in the correct position, the aforementioned prophylactic measures were in place or given, we had the correct personnel and equipment to complete the procedure and that anesthesia and the surgical team were given an opportunity to express any concerns. With the agreement of everyone in the room we proceeded with the operation. I opted to make an elliptical incision encompassing to pigmented lesions at the umbilicus due to the very large size of this umbilical hernia. Despite the fact that the fascial defect ultimately measured out to be 5 x 4 cm the actual hernia sac was the size of a softball. The skin was excised and sent for pathologic evaluation due to the pigmented lesions. I dissected down to the hernia sac using a combination of blunt dissection as well as Bovie electrocautery. Hemostasis was obtained using Bovie electrocautery. The sac was dissected back to the fascial defect. The sac was opened and intra-abdominal adhesions were lysed. Adhesions to the hernia sac were also taken down using a combination of Metzenbaum scissors as well as Bovie electrocautery. A small omental bleeder was tied using a 3-0 Vicryl tie. The sac was resected primarily using Bovie electrocautery. A Ventralex ST hernia patch (reference #[id number] lot# [id number] use by 2024-02-20) was obtained and deployed into the hernia defect. The mesh measured 11 x 14 cm and this was selected due to the fact that there would be adequate overlap of the mesh to the tissues to decrease the likelihood of recurrence. Of course this is a coated mesh to decrease adhesions of bowel to the mesh. The mesh was secured to the fascia using interrupted 0 PDS sutures. Were placed superiorly with another tube placed inferiorly and 1 placed each laterally to secure the mesh. Great care was taken to ensure that the mesh was centered in the defect. Digital and visual examination following placement of the mesh showed that there was no area where abdominal contents could "sneak out" around the mesh. The skin, subcutaneous tissues, and fascia were then injected using 30 mL of half percent Marcaine with epinephrine for pain control. The subcutaneous tissues were approximated using a combination of 0 PDS as well as 3-0 Vicryl in interrupted fashion. Once I had approximated the subcutaneous tissues it was clear that there was going to be massively redundant skin and it would not allow for the creation of an attractive umbilicus and as such I opted to excise additional skin which was done using a knife and Bovie electrocautery. The skin incision was approximated with 4-0 Monocryl in a subcuticular fashion. The skin was cleaned of its prep and Dermabond was applied. At this point a timeout was performed that confirmed that all counts were correct x2, the procedure that was performed, the blood loss, the IV fluids administered, the patient's condition, and any concerns of the operating team had. Having tolerated the procedure well, the patient was taken recovery room in good and stable condition. The plan is for outpatient discharge when the patient is adequately recovered. CPT 84914 (as this defect measured 5 cm in greatest length) and for a non- Medicare provider the HCPCS code is C1781 for the mesh. This document was created in part using voice recognition technology. Because of the inherent limitations of the system, occasional same sounding word substitutions and grammatical errors do occur and persist despite proofreading. Please read this document for content.
[2023-09-15] MEDS: fentaNYL 100 MCG/2 ML VIAL IVP PRN (09:38)
[2023-09-15] MEDS ORDERED: HYDROcod/ACETAM 5/325 MG TABLET PO PRN (09:41)
[2023-09-15] MEDS ORDERED: HYDROmorphone 0.5 MG/0.5 ML SYRINGE IVP PRN (09:41)
--- NOTE | 2023-09-15 09:42 | ANESTHESIA POST OP EVALUATION ---
Anesthesia Post Eval - Post Anesthesia Eval Vitals: Last Vital Signs Temp 36.1 C L 09/15/23 09:25 Pulse 58 L 09/15/23 09:25 Resp 17 09/15/23 09:25 BP 168/93 H 09/15/23 09:25 Pulse Ox 97 09/15/23 09:25 O2 Flow Rate CV Function Including HR & BP: Stable Pain Control: Satisfactory Nausea & Vomiting: Negative Mental Status: Baseline Respiratory Status: Airway Patent Hydration Status: Satisfactory Anesthesia Complications: None
[2023-09-15] MEDS ORDERED: KETOROLAC 30 MG/ML VIAL ONE (11:14)
[2023-09-15] MEDS: KETOROLAC 30 MG/ML VIAL IVP PRN (11:16)
[2023-09-15 11:52] VITALS: BP 144/80; O2SAT 98
== END 2023-09-15 06:32 | disposition home or self-care (01) ==
LOC: SDS 06:31
PROVIDERS: ATTEND Surgery
PROC: 0WUF0JZ Supplement Abdominal Wall with Synthetic Substitute, Open Approach (ICD-10-PCS; principal; 2023-09-15 07:30)
DX: K42.9 Umbilical hernia without obstruction or gangrene (principal); I10 Essential (primary) hypertension; F32.A Depression, unspecified; K21.9 Gastro-esophageal reflux disease without esophagitis; E66.9 Obesity, unspecified; Z68.31 Body mass index [BMI] 31.0-31.9, adult; N40.0 Benign prostatic hyperplasia without lower urinary tract symptoms
CPT/HCPCS: 49593; C1781; J7120; 93005